=== PATIENT | male | born 1965 | race Asian ===

== ENCOUNTER 2024-01-16 16:00 | Outpatient (CLI) | payer BC | END 2024-01-16 16:01 | disposition home or self-care (01) | LOC: CSHSLEEP 16:00 | PROVIDERS: ATTEND Otolaryngology Plastic Surgery within the Head & Neck | DX: G47.33 Obstructive sleep apnea (adult) (pediatric) (principal); R53.83 Other fatigue; R06.83 Snoring; G47.31 Primary central sleep apnea | CPT/HCPCS: 95800 ==

== ENCOUNTER 2024-02-19 08:37 | Outpatient (CLI) | payer BC | END 2024-02-19 08:38 | disposition home or self-care (01) | LOC: CSHSLEEP 08:37 | PROVIDERS: ATTEND Otolaryngology Plastic Surgery within the Head & Neck | DX: G47.33 Obstructive sleep apnea (adult) (pediatric) (principal); R53.83 Other fatigue; R06.83 Snoring | CPT/HCPCS: 95811 ==

== ENCOUNTER 2024-04-09 14:06 | Outpatient (CLI) | payer BC | END 2024-04-09 14:07 | disposition home or self-care (01) | LOC: CSHCP 14:06 | PROVIDERS: ATTEND Internal Medicine | DX: G47.33 Obstructive sleep apnea (adult) (pediatric) (principal) | CPT/HCPCS: 94060; 94618; 94726; 94729 ==